=== PATIENT | male | born 1990 | race Caucasian/White ===

== ENCOUNTER 2019-10-24 22:54 | Emergency (ER) | payer BC ==
--- NOTE | 2019-10-25 00:02 | ER ---
Nurse's Notes [facility] Name: Sandro Reynoso Age: 29 yrs Sex: Male : 1990 Arrival Date: 10/24/2019 Time: 22:57 Bed 20 Private MD: Diagnosis: Dental caries;Jaw pain-left upper Presentation: 10/24 23:08 Presenting complaint: Patient states: Toothache started yesterday. Swelling on the L ca1 cheek started today. Transition of care: patient was not received from another setting of care. Onset of symptoms was October 24, 2019. Risk Assessment: Do you want to hurt yourself or someone else? Patient reports no desire to harm self or others. Initial Sepsis Screen: Does the patient meet any 2 criteria? No. Patient's initial sepsis screen is negative. Does the patient have a suspected source of infection? No. Patient's initial sepsis screen is negative. Care prior to arrival: None. 23:08 Method Of Arrival: Ambulatory ca1 23:08 Acuity: CHADWICK 4 ca1 Triage Assessment: 23:19 EENT: Reports pain in left cheek, upper right lateral incisor, upper right central jd3 incisor, upper left central incisor, upper left lateral incisor and upper left cuspid. Historical: - Allergies: 23:11 No Known Allergies; ca1 - PMHx: 23:11 None; ca1 - PSHx: 23:11 None; ca1 - Immunization history:: Adult Immunizations up to date, Flu vaccine is not up to date. - Coronavirus screen:: The patient has NOT traveled to [place] in the past 14 days. The patient has NOT had contact with known/suspected case of Coronavirus?. - Social history:: Smoking status: Patient reports the use of cigarette tobacco products, smokes one-half pack cigarettes per day. - Ebola Screening: : Patient negative for fever greater than or equal to 101.5 degrees Fahrenheit, and additional compatible Ebola Virus Disease symptoms Patient denies exposure to infectious person Patient denies travel to an Ebola-affected area in the 21 days before illness onset No symptoms or risks identified at this time. Screenin:19 Abuse screen: Denies threats or abuse. Nutritional screening: No deficits noted. jd3 Tuberculosis screening: No symptoms or risk factors identified. Fall Risk Ambulatory Aid- None/Bed Rest/Nurse Assist (0 pts). Gait- Normal/Bed Rest/Wheelchair (0 pts) Mental Status- Oriented to own ability (0 pts). Total Agudelo Fall Scale indicates No Risk (0-24 pts). Assessment: 23:16 General: Appears in no apparent distress. uncomfortable, Behavior is calm, cooperative, jd3 appropriate for age. Pain: Complains of pain in left cheek, upper right lateral incisor, upper right central incisor, upper left central incisor, upper left lateral incisor and upper left cuspid Quality of pain is described as throbbing, pulsating. Neuro: Level of Consciousness is awake, alert, obeys commands, Oriented to person, place, time, situation. Cardiovascular: Capillary refill < 3 seconds Patient's skin is warm and dry. Respiratory: Airway is patent Respiratory effort is even, unlabored, Respiratory pattern is regular, symmetrical. GI: No signs and/or symptoms were reported involving the gastrointestinal system. : No signs and/or symptoms were reported regarding the genitourinary system. EENT: Oral mucosa is moist. Poor dentition noted. Absence of teeth noted - upper right lateral incisor (#7), upper right central incisor (#8), upper left central incisor (#9), upper left lateral incisor (#10) and upper left cuspid (#11) Dental caries noted in upper right lateral incisor (#7), upper right central incisor (#8), upper left central incisor (#9), upper left lateral incisor (#10) and upper left cuspid (#11) Throat is pink. Derm: Skin is intact, Skin is dry, Skin is normal, Skin temperature is warm. Musculoskeletal: Circulation, motion, and sensation intact. Range of motion: intact in all extremities, Swelling present in left cheek. 10/25 01:09 Reassessment: Patient appears in no apparent distress at this time. Patient and/or jd3 family updated on plan of care and expected duration. Pain level reassessed. Patient is alert, oriented x 3, equal unlabored respirations, skin warm/dry/pink. reported understanding of discharge instructions. Vital Signs: 10/24 23:11 BP 127 / 74; Pulse 82; Resp 16 S; Temp 99.4(O); Pulse Ox 99% on R/A; Weight 65.77 kg ca1 (R); Height 5 ft. 9 in. (175.26 cm) (R); Pain 7/10; 23:11 Body Mass Index 21.41 (65.77 kg, 175.26 cm) ca1 ED Course: 22:57 Patient arrived in ED. jg7 23:10 Triage completed. ca1 23:11 Arm band placed on right wrist. ca1 23:12 Luis Vigil, RN is Primary Nurse. jd3 23:20 Patient has correct armband on for positive identification. Bed in low position. Call jd3 light in reach. Side rails up X 1. 23:27 Guru Baron PA is PHCP. cp 23:27 Guru Bermudez MD is Attending Physician. cp 23:59 Sukhwinder Garcia DDS is Referral Physician. cp 10/25 01:07 No provider procedures requiring assistance completed. Patient did not have IV access jd3 during this emergency room visit. Administered Medications: 00:29 Drug: Clindamycin 600 mg {Note: given to left and right gluteus.} Route: IM; Site: [facility] Other; 01:09 Follow up: Response: No adverse reaction jd3 Outcome: 00:00 Discharge ordered by . cp 01:08 Discharged to home ambulatory. jd3 01:08 Condition: stable 01:08 Discharge instructions given to patient, Instructed on discharge instructions, follow up and referral plans. medication usage, Demonstrated understanding of instructions, follow-up care, medications, Prescriptions given X 2. 01:10 Patient left the ED. jd3 Signatures: Guru Baron PA PA cp Davies, Jonathon, RN RN j Klarissa Stark RN RN [facility] Ophelia Daugherty jg7
--- NOTE | 2019-10-25 00:03 | EDPHYS ---
Physician Documentation [facility] Name: Sandro Reynoso Age: 29 yrs Sex: Male : 1990 Arrival Date: 10/24/2019 Time: 22:57 Bed 20 Private MD: ED Physician Guru Bermudez HPI: 10/24 23:55 This 29 yrs old Male presents to ER via Ambulatory with complaints of cp Toothache. 23:55 The patient presents with pain, swelling. The problem is located in the left upper cp tooth. Onset: The symptoms/episode began/occurred today. Duration: The symptoms are continuous. Associated signs and symptoms: Pertinent positives: pain, swelling, Pertinent negatives: fever, inability to eat. Severity of symptoms: in the emergency department the symptoms are unchanged, despite home interventions. Historical: - Allergies: 23:11 No Known Allergies; ca1 - PMHx: 23:11 None; ca1 - PSHx: 23:11 None; ca1 - Immunization history:: Adult Immunizations up to date, Flu vaccine is not up to date. - Coronavirus screen:: The patient has NOT traveled to [place] in the past 14 days. The patient has NOT had contact with known/suspected case of Coronavirus?. - Social history:: Smoking status: Patient reports the use of cigarette tobacco products, smokes one-half pack cigarettes per day. - Ebola Screening: : Patient negative for fever greater than or equal to 101.5 degrees Fahrenheit, and additional compatible Ebola Virus Disease symptoms Patient denies exposure to infectious person Patient denies travel to an Ebola-affected area in the 21 days before illness onset No symptoms or risks identified at this time. ROS: 23:55 Constitutional: Negative for body aches, chills, fever, poor PO intake. cp 23:55 Eyes: Negative for injury, pain, redness, and discharge. cp 23:55 ENT: Positive for dental pain, Negative for drainage from ear(s), ear pain, sore throat, difficulty swallowing, difficulty handling secretions. 23:55 Neck: Negative for pain with movement, pain at rest, stiffness. 23:55 Respiratory: Negative for cough, shortness of breath, wheezing. 23:55 Abdomen/GI: Negative for abdominal pain, vomiting, diarrhea, constipation. 23:55 Skin: Negative for rash. 23:55 Neuro: Negative for dizziness, headache. 23:55 All other systems are negative. Exam: 23:56 Constitutional: The patient appears in no acute distress, alert, awake, non-toxic, well cp developed, well nourished. 23:56 Head/face: Noted is swelling, that is mild, of the left cheek, tenderness, that is mild, of the left cheek. 23:56 Eyes: Periorbital structures: appear normal, Conjunctiva: normal, no exudate, no injection, Sclera: no appreciated abnormality, Lids and lashes: appear normal, bilaterally. 23:56 ENT: External ear(s): are unremarkable, Nose: is normal, Mouth: Lips: moist, Oral mucosa: moist, abscess, is not appreciated, Posterior pharynx: Airway: no evidence of obstruction, patent, swelling, is not appreciated, erythema, is not appreciated, exudate, is not appreciated, Dental exam: abscess, is not appreciated, dental caries, that is severe, diffusely, gum swelling, that is mild, specifically in the upper left lateral incisor (#10), pain, that is mild, specifically in the upper left lateral incisor (#10), Voice: is normal. 23:56 Neck: ROM/movement: is normal, is supple, without pain, no range of motions limitations, no nuchal rigidity. 23:56 Chest/axilla: Inspection: normal. cp 23:56 Cardiovascular: Rate: normal, Rhythm: regular. 23:56 Respiratory: the patient does not display signs of respiratory distress, Respirations: normal, no use of accessory muscles, labored breathing, is not present. 23:56 Skin: no rash present. Vital Signs: 23:11 BP 127 / 74; Pulse 82; Resp 16 S; Temp 99.4(O); Pulse Ox 99% on R/A; Weight 65.77 kg ca1 (R); Height 5 ft. 9 in. (175.26 cm) (R); Pain 7/10; 23:11 Body Mass Index 21.41 (65.77 kg, 175.26 cm) ca1 MDM: 23:27 Patient medically screened. cp 10/25 00:00 Data reviewed: vital signs, nurses notes, and as a result, I will discharge patient. cp 00:00 Differential diagnosis: dental caries, gingivitis, dental abscess, pericoronitis. cp Counseling: I had a detailed discussion with the patient and/or guardian regarding: the historical points, exam findings, and any diagnostic results supporting the discharge/admit diagnosis, the need for outpatient follow up, for definitive care, a dentist, to return to the emergency department if symptoms worsen or persist or if there are any questions or concerns that arise at home. Administered Medications: 00:29 Drug: Clindamycin 600 mg {Note: given to left and right gluteus.} Route: IM; Site: [facility] Other; 01:09 Follow up: Response: No adverse reaction j Disposition: 01:15 Chart complete. cp 23:59 Co-signature as Attending Physician, Guru Bermudez MD I agree with the assessment and [facility] plan of care. Disposition: 10/25/19 00:00 Discharged to Home. Impression: Dental caries, Jaw pain - left upper. - Condition is Stable. - Discharge Instructions: Dental Caries, Adult, Dental Pain, Diet and Dental Disease. - Prescriptions for Clindamycin HCl 300 mg Oral Capsule - take 1 capsule by ORAL route every 6 hours for 10 days; 40 capsule. Ibuprofen 800 mg Oral Tablet - take 1 tablet by ORAL route every 8 hours As needed take with food; 30 tablet. - Medication Reconciliation Form, Thank You Letter, Antibiotic Education, Prescription Opioid Use form. - Follow up: Sukhwinder Garcia DDS; When: 2 - 3 days; Reason: Recheck today's complaints. - Problem is new. - Symptoms have improved. Signatures: Guru Bermudez MD MD cha Page, Corey, PA PA cp Davies, Jonathon, RN RN jd3 Acob, Cheryl, RN RN [facility] Corrections: (The following items were deleted from the chart) 01:10 00:00 10/25/2019 00:00 Discharged to Home. Impression: Dental caries; Jaw pain - left jd3 upper. Condition is Stable. Forms are Medication Reconciliation Form, Thank You Letter, Antibiotic Education, Prescription Opioid Use. Follow up: Sukhwinder Garcia; When: 2 - 3 days; Reason: Recheck today's complaints. Problem is new. Symptoms have improved. cp
[2019-10-25] MEDS ORDERED: CLINDAMYCIN IV 150 MG/ML (4 mL) VIAL ONE (00:28)
[2019-10-25 03:28] VITALS: BP 127/74; TEMP 99.4; O2SAT 99
== END 2019-10-25 01:10 | disposition home or self-care (01) ==
LOC: ER 22:54
DX: K02.9 Dental caries, unspecified (principal); R68.84 Jaw pain
CPT/HCPCS: 96372; 99283; S0077

== ENCOUNTER 2021-04-22 18:55 | Emergency (ER) | payer BC ==
--- OUTSIDE RECORDS SUMMARY | 2021-04-22 18:58 | XMS REPORT | Continuity of Care Document ---
:1990 Author Organization [facility] t Address [address] [place] [address] Care Team Providers Name Role Phone Valeria Zamudio Attending Clinician Problems This patient has no known problems. Allergies, Adverse Reactions, Alerts This patient has no known allergies or adverse reactions. Medications This patient has no known medications. Procedures This patient has no known procedures. Encounters Start End Encounter Admission Attending Care Care Encounter Source Date/Time Date/Time Type Type Clinicians Facility Department ID 2019-10-25 2019-10-25 Emergency [facility] [id number] 16:19:20 17:15:00 Kathy Alicia [id number] [place] [id number] [place] [id number] Results This patient has no known results.
--- NOTE | 2021-04-22 19:50 | ER ---
Nurse's Notes [facility] Name: Sandro Reynoso Age: 31 yrs Sex: Male : 1990 Arrival Date: 04/22/2021 Time: 19:00 Bed Waiting Private MD: Diagnosis: COVID Exposure Presentation: 04/22 19:42 Chief complaint: Patient states: Covid exposure 04/21 , asymptomatic. Coronavirus kg screen: Client denies travel out of the [place] in the last 14 days. At this time, unable to obtain information related to travel outside the [place] At this time, the client does not indicate any symptoms associated with coronavirus-19. Ebola Screen: Patient negative for fever greater than or equal to 101.5 degrees Fahrenheit, and additional compatible Ebola Virus Disease symptoms Patient denies exposure to infectious person. Patient denies travel to an Ebola-affected area in the 21 days before illness onset. Initial Sepsis Screen: Does the patient meet any 2 criteria? No. Patient's initial sepsis screen is negative. Does the patient have a suspected source of infection? No. Patient's initial sepsis screen is negative. Risk Assessment: Do you want to hurt yourself or someone else? Patient reports no desire to harm self or others. Onset of symptoms was April 21, 2021. 19:42 Method Of Arrival: Ambulatory kg 19:42 Acuity: CHADWICK 5 kg 19:47 Onset of symptoms was April 21, 2021. kg 19:47 Acuity: CHADWICK 5 kg Triage Assessment: 19:49 General: Appears in no apparent distress. Behavior is calm, cooperative, appropriate kg for age, quiet. Pain: Denies pain. Historical: - Allergies: 19:43 No Known Allergies; kg - Home Meds: 19:49 None [Active]; kg - PMHx: 19:49 None; kg - PSHx: 19:49 None; kg - Immunization history:: Adult Immunizations not up to date, Client reports having NOT received the Covid vaccine. Adult Immunizations not up to date, Client reports having NOT received the Covid vaccine. - Social history:: Smoking status: Patient reports the use of cigarette tobacco products, smokes one-half pack cigarettes per day, Patient uses alcohol, occasionally. Screenin:51 Abuse screen: Denies threats or abuse. Denies injuries from another. Nutritional kg screening: No deficits noted. Tuberculosis screening: No symptoms or risk factors identified. Fall Risk None identified. Vital Signs: 19:47 BP 107 / 67; Pulse 72; Resp 20; Temp 98.3(TE); Pulse Ox 97% ; Weight 68.04 kg; Height 5 kg ft. 9 in. (175.26 cm); Pain 0/10; 19:47 Body Mass Index 22.15 (68.04 kg, 175.26 cm) kg ED Course: 19:00 Patient arrived in ED. as 19:38 Javi Johnson PA is PHCP. [facility] 19:38 Rhys Campa MD is Attending Physician. [facility] 19:43 Triage completed. kg 19:49 Arm band placed on left wrist. kg 19:51 Patient has correct armband on for positive identification. kg 19:51 No provider procedures requiring assistance completed. kg 19:57 Patient did not have IV access during this emergency room visit. kg Administered Medications: No medications were administered Outcome: 19:49 Discharge ordered by . [facility] 19:57 Medical screen evaluation completed per provider. Patient declined treatment. kg 19:57 Condition: good 19:57 Following a medical screening exam, the patient was provided information regarding alternative care sites and resources available per registration personnel. 19:58 Patient left the ED. kg Signatures: Javi Johnson PA PA jmm Martinez, Amelia as Graham, Kristen, RN RN kg Corrections: (The following items were deleted from the chart) 19:47 19:43 Allergies: No Known Allergies; kg kg 19:47 19:43 Home Meds: None; kg kg 19:49 19:42 BP 106 / 71; Pulse 72bpm; Resp 20bpm; Pulse Ox 98% RA; Temp 98.9F Oral; 86.18 kg kg Reported; Height 5 ft. 5 in.; BMI: 31.6; Pain 0/10; kg 19:51 19:43 Home Meds: Keppra 1500 mg Oral tab 1 tab Q AM; kg kg 19:51 19:43 Home Meds: Keppra 2000 mg Oral tab Q PM; kg kg 19:51 19:43 Home Meds: Lamictal 200 mg Oral tab 1 tab 2 times per day; kg kg 19:51 19:43 Home Meds: Lexapro 25 mg Oral tab 1 tab once daily; kg kg 19:43 PMHx: Seizure; kg kg 19:43 PMHx: depression; kg kg 19:43 PSHx: section; kg kg :43 PSHx: Ligation of fallopian tube; kg kg
--- NOTE | 2021-04-22 19:50 | EDPHYS ---
Physician Documentation [facility] Name: Sandro Reynoso Age: 31 yrs Sex: Male : 1990 Arrival Date: 04/22/2021 Time: 19:00 Bed Waiting Private MD: ED Physician Rhys Campa HPI: 04/22 19:49 This 31 yrs old Male presents to ER via Ambulatory with complaints of r/o jmm covid. 19:49 States he is exposed to COVID-19. Currently has no symptoms and is requesting a Covid jmm test. Historical: - Allergies: 19:43 No Known Allergies; kg - Home Meds: 19:49 None [Active]; kg - PMHx: 19:49 None; kg - PSHx: 19:49 None; kg - Immunization history:: Adult Immunizations not up to date, Client reports having NOT received the Covid vaccine. Adult Immunizations not up to date, Client reports having NOT received the Covid vaccine. - Social history:: Smoking status: Patient reports the use of cigarette tobacco products, smokes one-half pack cigarettes per day, Patient uses alcohol, occasionally. ROS: 19:49 Constitutional: Negative for fever, chills, and weight loss, Cardiovascular: Negative jmm for chest pain, palpitations, and edema, Respiratory: Negative for shortness of breath, cough, wheezing, and pleuritic chest pain, Abdomen/GI: Negative for abdominal pain, nausea, vomiting, diarrhea, and constipation, Skin: Negative for injury, rash, and discoloration, Neuro: Negative for headache, weakness, numbness, tingling, and seizure. 19:49 All other systems are negative. Exam: 19:49 Constitutional: This is a well developed, well nourished patient who is awake, alert, jmm and in no acute distress. Head/Face: atraumatic. Eyes: EOMI, no conjunctival erythema appreciated ENT: Moist Mucus Membranes Neck: Trachea midline, Supple Chest/axilla: Normal chest wall appearance and motion. Cardiovascular: Regular rate and rhythm. No edema appreciated Respiratory: Normal respirations, no respiratory distress appreciated Abdomen/GI: Non distended, soft Back: Normal ROM Skin: General appearance color normal MS/ Extremity: Moves all extremities, no obvious deformities appreciated, no edema noted to the lower extremities Neuro: Awake and alert, normal gait Psych: Behavior is normal, Mood is normal, Patient is cooperative and pleasant Vital Signs: 19:47 BP 107 / 67; Pulse 72; Resp 20; Temp 98.3(TE); Pulse Ox 97% ; Weight 68.04 kg; Height 5 kg ft. 9 in. (175.26 cm); Pain 0/10; 19:47 Body Mass Index 22.15 (68.04 kg, 175.26 cm) kg MDM: 19:49 Patient medically screened. [facility] 04/23 01:18 Data reviewed: vital signs, nurses notes. [facility] Administered Medications: No medications were administered Disposition: 03:17 Co-signature as Attending Physician, Rhys Campa MD. [facility] Disposition Summary: 04/22/21 19:49 Discharge Ordered Location: Home as Medical Screen [facility] Condition: Stable [facility] Diagnosis - COVID Exposure [facility] Followup: [facility] - With: Private Physician - When: 2 - 3 days - Reason: Recheck today's complaints, Continuance of care, Re-evaluation by your physician Discharge Instructions: - Discharge Summary Sheet [facility] Forms: - Medication Reconciliation Form [facility] - Thank You Letter [facility] - Antibiotic Education [facility] - Prescription Opioid Use [facility] Signatures: Javi Johnson PA PA jmm Holmes, Maurice, MD MD [facility] Batool Roa RN RN kg Corrections: (The following items were deleted from the chart) 04/22 19:47 19:43 Allergies: No Known Allergies; kg kg 19:47 19:43 Home Meds: None; kg kg 19:51 19:43 Home Meds: Keppra 1500 mg Oral tab 1 tab Q AM; kg kg 19:51 19:43 Home Meds: Keppra 2000 mg Oral tab Q PM; kg kg 19:51 19:43 Home Meds: Lamictal 200 mg Oral tab 1 tab 2 times per day; kg kg 19:51 19:43 Home Meds: Lexapro 25 mg Oral tab 1 tab once daily; kg kg 19:51 19:43 PMHx: Seizure; kg kg 19:51 19:43 PMHx: depression; kg kg 19:51 19:43 PSHx: section; kg kg 19:51 19:43 PSHx: Ligation of fallopian tube; kg kg
[2021-04-22 20:04] VITALS: BP 107/67; TEMP 98.3; O2SAT 97
== END 2021-04-22 19:58 | disposition home or self-care (01) ==
LOC: ER 18:55
DX: Z20.822 Contact with and (suspected) exposure to COVID-19 (principal)
CPT/HCPCS: 99281

== ENCOUNTER 2022-11-22 18:33 | Emergency (ER) | payer BC ==
[2022-11-22] MEDS ORDERED: HYDROCODONE/APAP 7.5/325 MG TAB ONE (19:40)
[2022-11-22] MEDS ORDERED: IBUPROFEN 400 MG TAB ONE (19:41)
--- NOTE | 2022-11-22 19:56 | ER ---
Nurse's Notes [facility] Name: Sandro Reynoso Age: 32 yrs Sex: Male : 1990 Arrival Date: 11/22/2022 Time: 18:34 Bed 11 Private MD: Diagnosis: Disorder of teeth and supporting structures, unspecified Presentation: 11/22 19:05 Chief complaint: Patient states: bottom left molar pain for 2 days and now my face is lg3 swollen. Coronavirus screen: Client denies travel out of the [place] in the last 14 days. At this time, the client does not indicate any symptoms associated with coronavirus-19. Ebola Screen: Patient negative for fever greater than or equal to 101.5 degrees Fahrenheit, and additional compatible Ebola Virus Disease symptoms. Initial Sepsis Screen: Does the patient meet any 2 criteria? No. Patient's initial sepsis screen is negative. Does the patient have a suspected source of infection? No. Patient's initial sepsis screen is negative. Risk Assessment: Do you want to hurt yourself or someone else? Patient reports no desire to harm self or others. Onset of symptoms was November 20, 2022. 19:05 Method Of Arrival: Ambulatory lg3 19:05 Acuity: [place] 4 lg3 Triage Assessment: 19:07 General: Appears in no apparent distress. uncomfortable, Behavior is calm, cooperative. lg3 Pain: Complains of pain in mouth. 20:05 EENT: Reports pain in lower left third molar (#17) and left jaw. lg3 Historical: - Allergies: 19:07 No Known Allergies; lg3 - Home Meds: 19:07 None [Active]; lg3 - PMHx: 19:07 None; lg3 - PSHx: 19:07 foot; lg3 - Immunization history:: Adult Immunizations up to date, Client reports having NOT received the Covid vaccine. Flu vaccine is not up to date. - Social history:: Smoking status: Patient reports the use of cigarette tobacco products, smokes one-half pack cigarettes per day, Patient uses alcohol, occasionally. Patient/guardian denies using street drugs. Screenin:39 [facility] ED Fall Risk Assessment (Adult) History of falling in the last 3 months, kl including since admission No falls in past 3 months (0 pts) Confusion or Disorientation No (0 pts) Intoxicated or Sedated No (0 pts) Impaired Gait No (0 pts) Mobility Assist Device Used No (0 pt) Altered Elimination No (0 pt) Score/Fall Risk Level 0 - 2 = Low Risk Oriented to surroundings, Maintained a safe environment. Abuse screen: Denies threats or abuse. Nutritional screening: No deficits noted. Tuberculosis screening: No symptoms or risk factors identified. Assessment: 19:39 General: Appears distressed, uncomfortable, Behavior is calm, cooperative. EENT: Poor kl dentition noted. Vital Signs: 19:05 BP 120 / 85; Pulse 81; Resp 17 S; Temp 98.4(O); Pulse Ox 100% on R/A; Weight 68.04 kg lg3 (R); Height 5 ft. 9 in. (R); Pain 8/10; 19:05 Body Mass Index 22.15 (68.04 kg, 175.26 cm) lg3 19:05 Pain Scale: Adult lg3 ED Course: 18:34 Patient arrived in ED. am2 18:42 Guru Baron PA is PHCP. cp 18:42 Karan Gleason MD is Attending Physician. cp 19:07 Triage completed. lg3 19:07 Arm band placed on left wrist. lg3 19:39 No provider procedures requiring assistance completed. Patient did not have IV access kl during this emergency room visit. 20:05 Patient has correct armband on for positive identification. Bed in low position. Call lg3 light in reach. Side rails up X 1. Door closed. Noise minimized. Warm blanket given. Family accompanied patient. Administered Medications: 19:39 Drug: Clindamycin PO 600 mg Route: PO; kl 19:39 Drug: Ibuprofen PO 800 mg Route: PO; kl 19:39 Drug: Hydrocodone-Acetaminophen PO (7.5 mg-325 mg) 1 tabs Route: PO; kl Medication: 20:06 VIS not applicable for this client. lg3 Outcome: 19:56 Discharge ordered by . cp 20:05 Discharged to home ambulatory. lg3 20:05 Condition: stable 20:05 Discharge instructions given to patient, Instructed on discharge instructions, follow up and referral plans. medication usage, Demonstrated understanding of instructions, follow-up care, medications, Prescriptions given X 3. 20:06 Patient left the ED. lg3 Signatures: Mitzy Dempsey RN RN Guru Herrera PA PA cp Moreno, Amanda am2 Rhiannon Thomas, RN RN lg3
--- NOTE | 2022-11-22 19:56 | EDPHYS ---
Physician Documentation [facility] Name: Sandro Reynoso Age: 32 yrs Sex: Male : 1990 Arrival Date: 11/22/2022 Time: 18:34 Bed 11 Private MD: ED Physician Karan Gleason HPI: 11/22 19:30 This 32 yrs old Male presents to ER via Ambulatory with complaints of Toothache. cp 19:30 The patient presents with pain. The problem is located in the left lower back molar. cp Onset: The symptoms/episode began/occurred yesterday, and became worse this morning. Duration: The symptoms are continuous, and are steadily getting worse. Associated signs and symptoms: Pertinent positives: swelling, mandibular, Pertinent negatives: anorexia, dysphagia, fever. Severity of symptoms: in the emergency department the symptoms are unchanged, despite home interventions. Historical: - Allergies: 19:07 No Known Allergies; lg3 - Home Meds: 19:07 None [Active]; lg3 - PMHx: 19:07 None; lg3 - PSHx: 19:07 foot; lg3 - Immunization history:: Adult Immunizations up to date, Client reports having NOT received the Covid vaccine. Flu vaccine is not up to date. - Social history:: Smoking status: Patient reports the use of cigarette tobacco products, smokes one-half pack cigarettes per day, Patient uses alcohol, occasionally. Patient/guardian denies using street drugs. ROS: 19:35 Constitutional: Negative for body aches, chills, fever, poor PO intake. cp 19:35 Eyes: Negative for injury, pain, redness, and discharge. cp 19:35 ENT: Positive for dental pain, Negative for drainage from ear(s), ear pain, sore throat, difficulty swallowing, difficulty handling secretions. 19:35 Respiratory: Negative for cough, shortness of breath, wheezing. 19:35 Abdomen/GI: Negative for abdominal pain, nausea, vomiting, and diarrhea. Exam: 19:40 Constitutional: The patient appears in no acute distress, alert, awake, non-toxic, well cp developed, well nourished. 19:40 Head/face: Noted is swelling, that is mild, of the left jaw, tenderness, that is cp moderate, of the left jaw. 19:40 Eyes: Periorbital structures: appear normal, Conjunctiva: normal, no exudate, no injection, Lids and lashes: appear normal, bilaterally. 19:40 ENT: External ear(s): are unremarkable, Ear canal(s): are normal, clear, TM's: dullness, bilaterally, Nose: is normal, Mouth: Lips: moist, Oral mucosa: moist, Posterior pharynx: Airway: no evidence of obstruction, patent, Tonsils: no enlargement, no erythema, no exudate, swelling, is not appreciated, erythema, that is mild, exudate, is not appreciated, Dental exam: abscess, is not appreciated, dental caries, that is moderate, fractured teeth are noted, specifically the lower left third molar (#17), pain, that is moderate, specifically in the lower left third molar (#17), Voice: is normal. 19:40 Neck: ROM/movement: is normal, is supple, without pain, no range of motions limitations, no meningismus. 19:40 Chest/axilla: Inspection: normal. 19:40 Cardiovascular: Rate: normal, Rhythm: regular. cp 19:40 Respiratory: the patient does not display signs of respiratory distress, Respirations: normal, no use of accessory muscles, no retractions, labored breathing, is not present, Breath sounds: are clear throughout, no decreased breath sounds, no stridor, no wheezing. 19:40 Abdomen/GI: Exam negative for discomfort, distension, guarding, Inspection: abdomen appears normal. Vital Signs: 19:05 BP 120 / 85; Pulse 81; Resp 17 S; Temp 98.4(O); Pulse Ox 100% on R/A; Weight 68.04 kg lg3 (R); Height 5 ft. 9 in. (R); Pain 8/10; 19:05 Body Mass Index 22.15 (68.04 kg, 175.26 cm) lg3 19:05 Pain Scale: Adult lg3 MDM: 19:15 Patient medically screened. cp 19:55 Data reviewed: vital signs, nurses notes. cp 19:55 Consideration of Admission/Observation Escalation of care including cp admission/observation considered. I considered the following discharge prescriptions or medication management in the emergency department Medications were administered in the Emergency Department. See MAR. Test considered but Not performed: Labs: cbc, bmp. CT: facial bones. Counseling: I had a detailed discussion with the patient and/or guardian regarding: the historical points, exam findings, and any diagnostic results supporting the discharge/admit diagnosis, the need for outpatient follow up, for definitive care, a dentist, to return to the emergency department if symptoms worsen or persist or if there are any questions or concerns that arise at home. Administered Medications: 19:39 Drug: Clindamycin PO 600 mg Route: PO; kl 19:39 Drug: Ibuprofen PO 800 mg Route: PO; kl 19:39 Drug: Hydrocodone-Acetaminophen PO (7.5 mg-325 mg) 1 tabs Route: PO; kl Disposition: 20:00 Chart complete. cp Disposition Summary: 11/22/22 19:56 Discharge Ordered Location: Home cp Problem: new cp Symptoms: have improved cp Condition: Stable cp Diagnosis - Disorder of teeth and supporting structures, unspecified cp Followup: cp - With: Private Physician - When: 2 - 3 days - Reason: Recheck today's complaints Discharge Instructions: - Discharge Summary Sheet cp Forms: - Medication Reconciliation Form cp - Thank You Letter cp - Antibiotic Education cp - Prescription Opioid Use cp Prescriptions: - Clindamycin HCl 300 mg Oral Capsule - take 1 capsule by ORAL route every 6 hours for 10 days; 40 capsule; Refills: 0, cp Product Selection Permitted - Ibuprofen 800 mg Oral Tablet - take 1 tablet by ORAL route every 8 hours As needed take with food; 30 tablet; cp Refills: 0, Product Selection Permitted - Tramadol 50 mg Oral Tablet - take 1 tablet by ORAL route every 8 hours as needed; 12 tablet; Refills: 0, cp Product Selection Permitted Addendum: 11/24/2022 07:07 Co-signature as Attending Physician, Karan Gleason MD I reviewed the patient's care r t provided by the Advanced Practice Provider and agree with the diagnosis and treatment plan. Signatures: Mitzy Dempsey RN RN Guru Herrera PA PA cp Rhiannon Thomas RN RN lg3 Karan Gleason MD MD rt
[2022-11-22 20:19] VITALS: BP 120/85; TEMP 98.4; O2SAT 100
== END 2022-11-22 20:06 | disposition home or self-care (01) ==
LOC: ER 18:33
DX: K08.89 Other specified disorders of teeth and supporting structures (principal); F17.210 Nicotine dependence, cigarettes, uncomplicated
CPT/HCPCS: 99283